=== PATIENT | female | born 1955 | race Caucasian/White ===

== ENCOUNTER → 2017-09-13 09:49 | Outpatient (CLI) | payer MEDICARE, MEDICAID ==
[2014-12-24 09:41] VITALS: BMI 33.1
[~2017-09-13 09:49] MED LIST: AMBIEN10 MG PO; HYDROCODONE-APA1 TAB PO; NEURONTIN 300300 MG PO; NORCO 10/325 TA1 TA1 PO; PRILOSEC20 MG PO; STOOL SOFTENER240 MG PO; ZANTAC300 MG PO
== END | disposition home or self-care (01) ==
LOC: D.MRI 08-31 14:00
DX: M79.672 Pain in left foot (principal)

== ENCOUNTER → 2018-09-22 12:08 | Outpatient (CLI) | payer OTHER ==
[2014-12-24 09:41] VITALS: BMI 33.1
== END | disposition home or self-care (01) ==
LOC: D.MRI 12:08
DX: M54.5 Low back pain (principal)

== ENCOUNTER → 2019-02-22 12:21 | Outpatient (CLI) | payer OTHER ==
[2014-12-24 09:41] VITALS: BMI 33.1
== END | disposition home or self-care (01) ==
LOC: D.US 12:21
PROVIDERS: ATTEND Family Medicine
DX: R60.0 Localized edema (principal)

== ENCOUNTER → 2020-05-26 08:31 | Outpatient (CLI) | payer OTHER ==
[2014-12-24 09:41] VITALS: BMI 33.1
== END | disposition home or self-care (01) ==
LOC: D.US 08:31
PROVIDERS: ATTEND Emergency Medicine
DX: R79.89 Other specified abnormal findings of blood chemistry (principal)